=== PATIENT | female | born 1955 | race Caucasian/White ===

== ENCOUNTER 2023-03-10 07:37 | Day surgery (SDC) | payer MEDICARE, SELFPAY ==
[2023-03-09 09:01] VITALS: BMI 20.9
[2023-03-10] MEDS ORDERED: Heparin 5,000 UNITS/ML VIAL ONE (11:10)
[2023-03-10] MEDS ORDERED: Bupivacaine 0.25% HCL 30 ML VIAL ONE (11:31)
[2023-03-10] MEDS ORDERED: EPINEPHrine 1 MG/ML AMP ONE (11:31)
[2023-03-10] MEDS ORDERED: fentaNYL PF 100 MCG/2 ML SYRINGE ONE (11:53)
[2023-03-10] MEDS ORDERED: CEFAZOLIN 2 GM VIAL ONE (12:00)
[2023-03-10] MEDS ORDERED: Sodium Chloride 0.9% 100 ML ONE (12:00)
[2023-03-10] MEDS ORDERED: Dexamethasone 20 MG/5 ML VIAL ONE (12:11)
[2023-03-10] MEDS ORDERED: Lidocaine 1% PF 5 ML VIAL ONE (12:11)
[2023-03-10] MEDS ORDERED: ePHEDrine Sulfate 50 MG/10 ML VIAL ONE (12:11)
[2023-03-10] MEDS ORDERED: Ondansetron PF 4 MG/2 ML Vial ONE (12:11)
[2023-03-10] MEDS ORDERED: PROPOFOL 200 MG/20 ML VIAL ONE (12:11)
[2023-03-10] MEDS ORDERED: Isosulfan Blue 50 MG/5 ML VIAL ONE ×2 (12:14→13:56)
[2023-03-10] MEDS ORDERED: Morphine 4 MG/ML VIAL ONE (14:48)
[2023-03-10] MEDS ORDERED: traMADol HCl 50 MG TAB ONE (15:43)
== END 2023-03-10 16:26 | disposition home or self-care (01) ==
LOC: SDC 07:37
PROVIDERS: ATTEND Plastic Surgery
PROC: 07BJ0ZX Excision of Left Inguinal Lymphatic, Open Approach, Diagnostic (ICD-10-PCS; principal; 2023-03-10)
PROC: 0HRLX74 Replacement of Left Lower Leg Skin with Autologous Tissue Substitute, Partial Thickness, External Approach (ICD-10-PCS; 2023-03-10)
PROC: 0HBLXZZ Excision of Left Lower Leg Skin, External Approach (ICD-10-PCS; 2023-03-10)
DX: C43.72 Malignant melanoma of left lower limb, including hip (principal); Z90.710 Acquired absence of both cervix and uterus
CPT/HCPCS: 11606; 15100; 38531; 78195; 97139; A9541; C1713; Q9968; 88305; 88307; 88342; J0171; J1100; J1644; J2270; J2405; J2704; J3490; S0020